=== PATIENT | male | born 1945 ===

== ENCOUNTER → 2019-12-12 15:02 | Outpatient (ROUT) | payer OTHER, SELFPAY ==
[2019-12-12 15:20] LABS: Add Manual Diff / Slide Review NO; Basophils Absolute Auto 0 /uL (0-100); Basophils Percent Auto 0.6 % (0-2); Eosinophils Absolute Auto 200 /uL (0-450); Eosinophils Percent Auto 3.7 % (2-4); Hematocrit 29.4 % (41-53); Hemoglobin 9.8 g/dL (13.5-17.5); Lymphocytes Absolute Auto 500 /uL (1100-4500); Mean Corpuscular HGB Conc 33.2 % (30-36); Mean Corpuscular Hemoglobin 30.4 PG (26-34); Mean Corpuscular Volume 91.6 fL (80-100); Monocytes Absolute Auto 600 /uL (0-900); Monocytes Percent Auto 11.3 % (3-14); Neutrophils Absolute Auto 4000 /uL (1500-7000); Neutrophils Percent Auto 74.4 % (50-75); Platelet Count 194 X10^3/uL (150-400); Red Blood Cell Count 3.21 X10^6/uL (4.5-5.9); Red Cell Distribution Width 15.6 % (11.6-14.8); White Blood Cell Count 5.4 X10^3/uL (4.5-11.0)
[2019-12-12 15:33] LABS: Alanine Aminotransferase 8 IU/L (<50); Alkaline Phosphatase 106 U/L (38-126); Aspartate Aminotransferase 19 IU/L (17-59); BUN Creatinine Ratio 44.2 (6-22); Bilirubin Total 0.3 mg/dL (0.2-1.3); Blood Urea Nitrogen 23 mg/dL (9-20); Calcium 8.8 mg/dL (8.4-10.2); Carbon Dioxide 27 mmol/L (22-32); Chloride 98 mmol/L (98-107); Estimated Glomerular Filt Rate > 60.0 mL/min (>60); Globulin 3.1 g/dL (1.7-4.1); Glucose 84 mg/dL (80-110); HEMOLYSIS < 15 (0-50); Potassium 4.6 mmol/L (3.4-5.1); Sodium 132 mmol/L (137-145); Total Protein 6.1 g/dL (6.3-8.2)
== END ==
PROVIDERS: Visit Provider Family Medicine
DX: K26.4 Chronic or unspecified duodenal ulcer with hemorrhage (principal)
CPT/HCPCS: 80053; 85025